=== PATIENT | male | born 1990 | race Two or more races ===

== ENCOUNTER 2020-10-05 21:11 | Emergency (ER) | payer OTHER ==
[2020-10-05 21:24] VITALS: BP 103/63; PULSE 77; TEMP 98.5; BMI 20.2
== END 2020-10-05 21:49 | disposition home or self-care (01) ==
LOC: JER 21:11 → JERFT 21:11
DX: Z20.822 Contact with and (suspected) exposure to COVID-19 (principal)
CPT/HCPCS: 99283-25; C9803; U0003; U0005

== ENCOUNTER 2021-03-19 15:12 | Emergency (ER) | payer OTHER ==
[2021-03-19 15:24] VITALS: TEMP 98; BMI 20.2
[2021-03-19] MEDS: SODIUM CHLORIDE 1,000 ML IV STA ×2 (16:40→17:30)
[2021-03-19] MEDS: ONDANSETRON 4 MG/2 ML VIAL IVPUSH ONE ×2 (16:40→17:30)
[2021-03-19] MEDS: FAMOTIDINE 20 MG/50 ML IVPB 20 MG/50 ML MG IVPB ONE ×2 (16:40→17:30)
[2021-03-19] MEDS: MAG HYDROX/AL HYDROX/SIMETH 30 ML UNIT-DOSE CUP PO ONE ×2 (16:45→17:30)
[2021-03-19] MEDS ORDERED: MAG HYDROX/AL HYDROX/SIMETH 30 ML UNIT-DOSE CUP ONE (17:47)
[2021-03-19] MEDS ORDERED: FAMOTIDINE 20 MG/50 ML IVPB 20 MG/50 ML MG IVPB ONE (17:47)
[2021-03-19] MEDS ORDERED: ONDANSETRON 4 MG/2 ML VIAL ONE (17:48)
[2021-03-19 17:55] LABS: BASO % 0.7 % (0-2.0); EOS % 0.2 % (0-4.5); HEMATOCRIT 41.6 % (35.4-49); HEMOGLOBIN 14.3 GM/dL (11.7-16.9); LYMPH % 18.8 % (8-40); MCHC 34.4 g/dl (32.0-35.9); MEAN PLT VOLUME 7.8 fl (7.5-11.1); NEUT % 75.3 % (42.8-82.8); PLATELET COUNT 223 10^3/uL (134-434); RBC 4.62 M/mm3 (4.00-5.60); RDW 12.9 % (11.9-15.9); WHITE BLOOD COUNT 8.4 K/mm3 (4.0-10.0)
[2021-03-19 18:22] LABS: ALBUMIN 4.8 g/dl (3.4-5.0); BLOOD UREA NITROGEN 9.1 mg/dL (7-18); CALCIUM 9.4 mg/dL (8.5-10.1)
[2021-03-19 18:25] LABS: CREATININE 0.9 mg/dL (0.55-1.3)
[2021-03-19 18:27] LABS: BILIRUBIN,TOTAL 1.2 mg/dL (0.2-1); TOT PROT 7.8 g/dl (6.4-8.2)
[2021-03-19] MEDS ORDERED: MECLIZINE HCL 25 MG TABLET (FP) PO ONE (18:49)
[2021-03-19] MEDS ORDERED: MECLIZINE HCL 25 MG TABLET (FP) ONE (18:54)
[2021-03-19 20:25] VITALS: BP 115/64; PULSE 56
== END 2021-03-19 20:24 | disposition home or self-care (01) ==
LOC: JER 15:12
PROC: 3E033GC Introduction of Other Therapeutic Substance into Peripheral Vein, Percutaneous Approach (ICD-10-PCS; principal; 2021-03-19)
DX: R42 Dizziness and giddiness (principal); R11.2 Nausea with vomiting, unspecified
CPT/HCPCS: 36415; 80053; 83690; 85025; 96365; 96375; 99284-25